=== PATIENT | male | born 1970 | race Caucasian/White ===

== ENCOUNTER → 2017-06-09 | Outpatient (CLI) | payer OTHER ==
[~2017-06-09] MED LIST: NS 100 ML IV 100 ML IV ONE
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
== END | disposition home or self-care (01) ==
LOC: RAD 08:59
PROVIDERS: ATTEND Nurse Practitioner
DX: R22.9 Localized swelling, mass and lump, unspecified (principal); M84.412A Pathological fracture, left shoulder, initial encounter for fracture
CPT/HCPCS: 70491; A4222